=== PATIENT | female | born 1940 | race Caucasian/White ===

== ENCOUNTER 2018-07-05 21:43 | Inpatient (IN) | payer OTHER ==
[~2018-07-05] VITALS: Ht 162.6 cm; Wt 65.8 kg
[2018-07-05 22:05] VITALS: BP_SYST 121
[2018-07-05] MEDS ORDERED: KETOROLAC TROMETHAMINE 15 MG VIAL IVP ONE (22:15)
[2018-07-05] MEDS ORDERED: NACL 0.9% 1,000 ML IV ONE (22:15)
[2018-07-05] MEDS ORDERED: ONDANSETRON HCL 4 MG/2 ML VIAL IVP ONE (22:15)
[2018-07-05] MEDS ORDERED: MECLIZINE HCL 25 MG TABLET (ANITVERT) PO ONE (22:15)
[2018-07-05 23:19] LABS: BASOPHILS % (AUTO) 0.2 % (0.0-2.0); EOSINOPHILS % (AUTO) 0.2 % (0.0-4.0); HEMATOCRIT 37.7 % (36-48); HEMOGLOBIN 12.4 g/dL (12.0-16.0); LYMPHOCYTES # (AUTO) 0.7 K/uL (1.0-5.5); LYMPHOCYTES % (AUTO) 10.5 % (20.5-51.5); MEAN CORPUSCULAR HEMOGLOBIN 31 pg (27-31); MEAN CORPUSCULAR HGB CONC 33 % (32-36); MEAN CORPUSCULAR VOLUME 93 fL (79.0-98.0); MONOCYTES # (AUTO) 0.2 K/uL (0.0-1.0); MONOCYTES % (AUTO) 3.2 % (1.7-9.3); NEUTROPHILS # (AUTO) 5.9 K/uL (1.8-7.7); NEUTROPHILS % (AUTO) 85.9 % (40.0-70.0); PLATELET COUNT (AUTO) 271 K/uL (130-430); RED BLOOD CELL COUNT(AUTO) 4.05 MIL/uL (4.2-6.2); RED CELL DISTRIBUTION WIDTH 13.3 % (9.0-15.0); WHITE BLOOD COUNT (AUTO) 6.8 K/uL (4.8-10.8)
[2018-07-05 23:39] LABS: ANION GAP 8 (5-15); CHLORIDE 105 mmol/L (98-107); CREATININE 0.86 mg/dL (0.55-1.30); GLUCOSE 178 mg/dL (70-99); POTASSIUM 3.7 mmol/L (3.5-5.1); SODIUM SERUM 139 mmol/L (136-145); UREA NITROGEN, BLOOD 17 mg/dL (8-21)
[2018-07-05 23:43] LABS: ALANINE AMINOTRANSFERASE 21 U/L (12-78); ALBUMIN 3.4 g/dL (3.4-4.8); ASPARTATE AMINOTRANSFERASE 15 U/L (10-37); LIPASE 235 U/L (73-393); TOTAL BILIRUBIN 0.5 mg/dL (0.0-1.0)
[2018-07-06] MEDS ORDERED: ONDANSETRON HCL 4 MG/2 ML VIAL IVP ONE (00:15)
[2018-07-06] MEDS ORDERED: MECLIZINE HCL 25 MG TABLET (ANITVERT) PO ONE (00:15)
[2018-07-06] MEDS ORDERED: MECLIZINE HCL 25 MG TABLET (ANITVERT) PO PRN ×2 (02:15→16:15)
[2018-07-06] MEDS ORDERED: ONDANSETRON HCL 4 MG/2 ML VIAL IVP PRN (02:15)
[2018-07-06] MEDS ORDERED: METOCLOPRAMIDE HCL 10 MG/2 ML VIAL IVP ONE (02:15)
[2018-07-06 02:17] LABS: BILIRUBIN,URINE NEGATIVE (NEGATIVE); BLOOD, URINE NEGATIVE (NEGATIVE); CLARITY/URINE CLEAR (CLEAR); COLOR,URINE YELLOW (YELLOW); GLUCOSE,URINE NEGATIVE (NEGATIVE); KETONES,URINE TRACE (NEGATIVE); LEUKOCYTE ESTERASE ,URINE 1+ (NEGATIVE); NITRITE, URINE NEGATIVE (NEGATIVE); PH,URINE 6.5 (5.0-8.0); PROTEIN URINE NEGATIVE (NEGATIVE); UROBILINOGEN,URINE 0.2 (0.2-1.0)
[2018-07-06 02:29] LABS: BACTERIA,URINE RARE /HPF (None Seen); RBC,URINE 0-3 /HPF (0-3)
[2018-07-06 02:51] VITALS: BP_SYST 116
[2018-07-06] MEDS ORDERED: KCL 20 mEq in D5/0.45NS 1000mL 1,000 ML IV ONE (03:00)
[2018-07-06] MEDS ORDERED: GENTAMICIN 80 mg/100 mL NS 100 ML IV ONE ×3 (03:30→05:30)
[2018-07-06 05:38] VITALS: BP_SYST 116
[2018-07-06 08:00] VITALS: BP_SYST 114
[2018-07-06] MEDS ORDERED: cefTRIAXone 1 GM IVPB PREMIX 50 ML IV SCH (09:00)
[2018-07-06 12:28] VITALS: BP_SYST 132
[2018-07-06 16:29] VITALS: BP_SYST 143
[2018-07-06 19:50] VITALS: BP_SYST 129
[2018-07-06] MEDS ORDERED: ENOXAPARIN SODIUM 40 MG/0.4 ML SYRINGE SUBCUT SCH (21:00)
[2018-07-06] MEDS ORDERED: GENTAMICIN 120 mg/100 mL NS 100 ML IV SCH (23:00)
[2018-07-07 00:06] VITALS: BP_SYST 129
[2018-07-07 06:41] LABS: ALANINE AMINOTRANSFERASE 16 U/L (12-78); ALBUMIN 2.8 g/dL (3.4-4.8); ANION GAP 6 (5-15); ASPARTATE AMINOTRANSFERASE 12 U/L (10-37); CALCIUM 8.5 mg/dL (8.4-11.0); CHLORIDE 109 mmol/L (98-107); CREATININE 0.79 mg/dL (0.55-1.30); GLUCOSE 91 mg/dL (70-99); POTASSIUM 3.5 mmol/L (3.5-5.1); SODIUM SERUM 143 mmol/L (136-145); TOTAL BILIRUBIN 0.6 mg/dL (0.0-1.0); UREA NITROGEN, BLOOD 9 mg/dL (8-21)
[2018-07-07 08:00] VITALS: BP_SYST 137
[2018-07-07] MEDS ORDERED: IBUPROFEN 400 MG TABLET PO PRN (09:15)
[2018-07-07] MEDS ORDERED: ENOXAPARIN SODIUM 80 MG/0.8 ML SYRINGE SUBCUT ONE ×2 (10:00→11:15)
[2018-07-07] MEDS ORDERED: *LOVENOX 1MG/KG Q12H/PHARMACY XX SCH (11:15)
[2018-07-07 12:00] VITALS: BP_SYST 140
[2018-07-07 16:00] VITALS: BP_SYST 132
[2018-07-07 20:54] VITALS: BP_SYST 127
[2018-07-07] MEDS ORDERED: ENOXAPARIN SODIUM 80 MG/0.8 ML SYRINGE SUBCUT SCH (21:00)
== END 2018-07-07 22:09 | disposition short-term general hospital (02) | DRG 300 ==
LOC: SED 21:43 → STU 07-06 02:13
PROVIDERS: ADMIT Family Medicine; ATTEND Family Medicine
DX: I82.C12 Acute embolism and thrombosis of left internal jugular vein (principal); N39.0 Urinary tract infection, site not specified; M19.90 Unspecified osteoarthritis, unspecified site; Z88.0 Allergy status to penicillin
CPT/HCPCS: 36415; 70450-TC; 80053; 81000-TC; 83605; 83690-TC; 84484; 85025; 87040-TC; 87086; 93005; 93880; 96361; 96374; 96375; 96376; 99285; J0696; J1580; J1650; J1885; J1956; J2405; J2765; J8597